=== PATIENT | female | born 1985 | race African-American/Black ===

== ENCOUNTER 2018-04-19 12:44 | Emergency (ER) | payer SELFPAY ==
[2018-04-19 13:31] VITALS: BP 104/70
--- NOTE | 2018-04-19 14:10 | ER Document Report ---
ED GI/ - General Chief Complaint: Abdominal Cramping Stated Complaint: VAGINAL BLEEDING Time Seen by Provider: 04/19/18 14:05 Mode of Arrival: Ambulatory Information source: Patient, [facility] Records Notes: 32-year-old female patient comes emergency room to determine if she is still . She was given pills to take, vomited some of them, so had a prescription for a vaginal suppository. She has not passed tissue and is concerned that it was not successful. She was 9 weeks by dates and ultrasound prior to starting the medication. Patient is blood type A-. She did not receiv e a RhoGam shot from her providers in [facility]. - Related Data Allergies/Adverse Reactions: No Known Allergies Allergy (Verified 04/19/18 12:46) Past Medical History - General Information source: Patient, [facility] Records - Social History Smoking Status: Never Smoker Cigarette use (# per day): No Chew tobacco use (# tins/day): No Smoking Education Provided: No Frequency of alcohol use: None Drug Abuse: None Lives with: Family Family History: Reviewed & Not Pertinent Patient has suicidal ideation: No Patient has homicidal ideation: No - Medical History Medical History: Negative Past Surgical History: Reports: Hx Section - x3 - Immunizations Hx Diphtheria, Pertussis, Tetanus Vaccination: Yes Review of Systems - Review of Systems Constitutional: No symptoms reported EENT: No symptoms reported Cardiovascular: No symptoms reported Respiratory: No symptoms reported Gastrointestinal: No symptoms reported Genitourinary: No symptoms reported Female Genitourinary: See HPI Musculoskeletal: No symptoms reported Skin: No symptoms reported Hematologic/Lymphatic: No symptoms reported Neurological/Psychological: No symptoms reported Physical Exam - Vital signs Vitals: Temp Pulse Resp BP Pulse Ox 98.2 F 79 18 104/70 96 04/19/18 13:29 04/19/18 13:29 04/19/18 13:29 04/19/18 13:29 04/19/18 13:29 - Notes Notes: PHYSICAL EXAMINATION: GENERAL: Well-appearing, well-nourished and in no acute distress. HEAD: Atraumatic, normocephalic. EYES: Pupils equal round and reactive to light, extraocular movements intact, sclera anicteric, conjunctiva are normal. ENT: nares patent, oropharynx clear without exudates. Moist mucous membranes. NECK: Normal range of motion, supple without lymphadenopathy LUNGS: Breath sounds clear to auscultation bilaterally and equal. No wheezes rales or rhonchi. HEART: Regular rate and rhythm without murmurs ABDOMEN: Soft, nontender, normoactive bowel sounds. No guarding, no rebound. No masses appreciated. EXTREMITIES: Normal range of motion, no pitting or edema. No cyanosis. NEUROLOGICAL: Cranial nerves grossly intact. Normal speech, normal gait. Normal sensory, motor, and reflex exams. PSYCH: Normal mood, normal affect. SKIN: Warm, Dry, normal turgor, no rashes or lesions noted. Course - Vital Signs Vital signs: Temp Pulse Resp BP Pulse Ox 98.2 F 79 18 104/70 96 04/19/18 13:29 04/19/18 13:29 04/19/18 13:29 04/19/18 13:29 04/19/18 13:29 - Diagnostic Test Radiology reviewed: Image reviewed - Gestational sac is in the cervix. No heart tones or movement seen. Discharge - Discharge Clinical Impression: Incomplete , Need for rhogam due to Rh negative mother Condition: Stable Disposition: HOME, SELF-CARE Additional Instructions: Your ultrasound showed the gestational sac was near the cervix and did not have a heartbeat or any movement. This means that the pills were successful, and you should be passing the tissue in the next 1-2 days. Take ibuprofen for cramping and pain if needed. Follow-up with [facility] if any problems. RETURN TO THE EMERGENCY ROOM IF ANY NEW OR WORSENING SYMPTOMS.
--- NOTE | 2018-04-19 15:04 | RADIOLOGY REPORT (SQ) ---
EXAM DESCRIPTION: U/S OB TRANSVAGINAL W/O DOP COMPLETED DATE/TIME: 04/19/2018 2:48 pm REASON FOR STUDY: Took ab pills suppository, not passed tissue COMPARISON: None. TECHNIQUE: Transvaginal static and realtime grayscale images acquired of the pelvis. Additional [place] cted spectral and color Doppler images recorded. All images stored on PACs. bHCG: Not applicable. CLINICAL DATES: LMP 02/10/2018. 9 weeks 5 days. LIMITATIONS: None. FINDINGS: Sonographic imaging shows an intrauterine gestational sac that extends into the cervical r egion. Of fetus is present with crown-rump length consistent with the gestational 10 weeks 0 days. No cardiac motion is present. No movement is present. IMPRESSION: Incomplete at 10 weeks. TECHNICAL DOCUMENTATION: JOB ID: [id number] [employer]- All Rights Reserved rev-08/12 Reading location - IP/workstation name: [email or web address]
== END 2018-04-19 20:26 | disposition left against medical advice (07) ==
LOC: ER 12:44
DX: O03.4 Incomplete spontaneous abortion without complication (principal); O36.0110 Maternal care for anti-D [Rh] antibodies, first trimester, not applicable or unspecified; Z3A.09 9 weeks gestation of pregnancy
CPT/HCPCS: 36415; 76817; 86850; 86900; 86901; 99284

== ENCOUNTER 2018-04-29 19:29 | Observation (INO) | payer SELFPAY ==
[2018-04-29 21:17] LABS: ABSOLUTE LYMPHOCYTES (AUTO) 0.9 10^3/uL (0.5-4.7); ABSOLUTE MONOCYTES (AUTO) 0.4 10^3/uL (0.1-1.4); ABSOLUTE NEUT (AUTO) 7.8 10^3/uL (1.7-8.2); BASOPHILS % (AUTO) 0.2 % (0-2); EOSINOPHILS % (AUTO) 0.5 % (0-6); HEMATOCRIT 34.5 % (36.0-47.0); HEMOGLOBIN 11.5 g/dL (12.0-15.5); LYMPHOCYTES % (AUTO) 9.7 % (13-45); MEAN CORPUSCULAR HEMOGLOBIN 29.7 pg (27.0-33.4); MEAN CORPUSCULAR HGB CONC 33.2 g/dL (32.0-36.0); MEAN CORPUSCULAR VOLUME 90 fl (80-97); MONOCYTES % (AUTO) 4.6 % (3-13); PLATELET COUNT 355 10^3/uL (150-450); RED BLOOD COUNT 3.85 10^6/uL (3.72-5.28); RED CELL DISTRIBUTION WIDTH 13.5 % (11.5-14.0); TOTAL CELLS COUNTED % (AUTO) 100 %; WHITE BLOOD COUNT 9.2 10^3/uL (4.0-10.5)
[2018-04-29 21:46] LABS: ANION GAP 8 (5-19); BLOOD UREA NITROGEN 11 mg/dL (7-20); CALCIUM 9.5 mg/dL (8.4-10.2); CARBON DIOXIDE 28 mmol/L (22-30); CHLORIDE 103 mmol/L (98-107); GLUCOSE 109 mg/dL (75-110); POTASSIUM 4.1 mmol/L (3.6-5.0)
[2018-04-29 22:40] LABS: APPEARANCE,URINE TURBID; BILIRUBIN,URINE NEGATIVE (NEGATIVE); GLUCOSE, URINE NEGATIVE (NEGATIVE); KETONES,URINE NEGATIVE (NEGATIVE); LEUKOCYTE ESTERASE,URINE MODERATE (NEGATIVE); NITRITE,URINE NEGATIVE (NEGATIVE); PROTEIN,URINE 100 mg/dL (NEGATIVE); URINE SPECIFIC GRAVITY 1.029
[2018-04-29 22:41] LABS: COLOR,URINE RED
--- NOTE | 2018-04-30 00:21 | RADIOLOGY REPORT (SQ) ---
EXAM DESCRIPTION: US TRANSVAGINAL COMPLETED DATE/TME: 04/29/2018 21:13 CLINICAL HISTORY: 32 years, Female, Evaluate retained products of conception COMPARISON: None. TECHNIQUE: LIMITATIONS: None. FINDINGS: The endometrial stripe is thickened, measuring 15 mm. There is a small amount of fluid within the endometrial cavity as well. There is some complex material within the cervical canal, possibly blood clot. There are no focal fibroids. The ovaries are unremarkable, and contain small follicular cysts. Blood flow was demonstrated in both ovaries with Doppler. IMPRESSION: Thickened endometrial stripe. Retained products of conception must be considered. Possible blood clot in the cervical canal. copyright 2010 [employer]- All Rights Reserved
--- NOTE | 2018-04-30 00:50 | ER Document Report ---
ED General - General Chief Complaint: Vaginal Bleeding Stated Complaint: VAGINAL BLEEDING,COUGH,WEAKNESS Time Seen by Provider: 04/29/18 21:12 Notes: Patient is a 32-year-old patient presenting with 1 week of heavy vaginal bleeding. Patient states that she had a medically induced elective 2 weeks ago. Began having some cramping early thereafter but did not began bleeding until 1 week ago. States she has been bleeding 5-6 pads daily since that time, more heavily in the last 24-48 hours. Notes a cramping, aching lower abdominal pain. Describes this as being moderately intense. Nothing improves or worsens the pain. Has not yet followed up with her [employer]. She was seen in the emergency department 10 days ago, given RhoGam at that time. No fever or constitutional symptoms. TRAVEL OUTSIDE OF THE [place] IN LAST 30 DAYS: No - Related Data Allergies/Adverse Reactions: No Known Allergies Allergy (Verified 04/19/18 12:46) Past Medical History - General Information source: Patient - Social History Smoking Status: Never Smoker Chew tobacco use (# tins/day): No Frequency of alcohol use: None Drug Abuse: None Lives with: Family Family History: Reviewed & Not Pertinent Patient has suicidal ideation: No Patient has homicidal ideation: No Renal/ Medical History: Denies: Hx Peritoneal Dialysis Past Surgical History: Reports: Hx Section - x3 - Immunizations Hx Diphtheria, Pertussis, Tetanus Vaccination: Yes Review of Systems - Review of Systems Notes: Constitutional: Negative for fever. HENT: Negative for sore throat. Eyes: Negative for visual changes. Cardiovascular: Negative for chest pain. Respiratory: Negative for shortness of breath. Gastrointestinal: Positive for lower abdominal pain Genitourinary: Positive vaginal bleeding Musculoskeletal: Negative for back pain. Skin: Negative for rash. Neurological: Negative for headaches, weakness or numbness. 10 point ROS negative except as marked above and in HPI. Physical Exam - Vital signs Vitals: Temp Pulse Resp BP Pulse Ox 99.3 F 108 H 20 106/62 94 04/29/18 19:35 04/29/18 19:35 04/29/18 19:35 04/29/18 19:35 04/29/18 19:35 Interpretation: Tachycardic Notes: PHYSICAL EXAMINATION: GENERAL: Well-appearing, well-nourished and in no acute distress. HEAD: Atraumatic, normocephalic. EYES: Pupils equal round and reactive to light, extraocular movements intact, sclera anicteric, conjunctiva are normal. ENT: nares patent, oropharynx clear without exudates. Moist mucous membranes. NECK: Normal range of motion, supple without lymphadenopathy LUNGS: Breath sounds clear to auscultation bilaterally and equal. No wheezes rales or rhonchi. HEART: Regular rate and rhythm without murmurs ABDOMEN: Soft, mild diffuse tenderness in the lower abdomen without focality, normoactive bowel sounds. No guarding, no rebound. No masses appreciated. : pelvic examination with copious amounts of dark blood that filled the speculum making visualization of the cervix unobtainable. EXTREMITIES: Normal range of motion, no pitting or edema. No cyanosis. NEUROLOGICAL: No focal neurological deficits. Moves all extremities spontaneously and on command. PSYCH: Normal mood, normal affect. SKIN: Warm, Dry, normal turgor, no rashes or lesions noted. Course - Re-evaluation Re-evalutation: 04/30/18 00:49 Patient presents with 1 week of heavy vaginal bleeding saturating through 6-10 pads daily. On pelvic examination the speculum fills up briskly with dark red blood and I am unable to visualize the cervix secondary to the briskness of the bleeding. Hemoglobin moderately decreased at 11.5. Patient was mildly tachycardic at presentation of 108 although resolved, evaluation at 98. Transvaginal ultrasound shows likely retained product conception, thickened endometrial stripe at 15 [place]. [place] [address]. I did discuss this case with Dr. Yuen the [employer] on-call who will evaluate the patient for D&C - Vital Signs Vital signs: Temp Pulse Resp BP Pulse Ox 98.8 F 120 H 18 107/58 L 98 04/30/18 02:00 04/30/18 02:00 04/30/18 02:00 04/30/18 02:00 04/30/18 02:00 - Laboratory Result Diagrams: 04/29/18 21:04 04/29/18 21:04 Laboratory results interpreted by me: 04/29/18 04/29/18 04/29/18 21:04 21:04 22:05 Hgb 11.5 L Hct 34.5 L Seg Neutrophils % 85.0 H Lymphocytes % 9.7 L Beta HCG, Quant 04608.00 H Urine Protein 100 H Urine Blood LARGE H Urine Urobilinogen 4.0 H Ur Leukocyte Esterase MODERATE H - Diagnostic Test Radiology reviewed: Reports reviewed Discharge - Discharge Clinical Impression: Retained products of conception, Vaginal bleeding Condition: Fair Disposition: ADMITTED OBSERVATION Admitting Provider: [facility] Admitted: OR
[2018-04-30] MEDS ORDERED: PROPOFOL INJ 200 MG/20 ML VIAL IV ONE (02:25)
[2018-04-30] MEDS ORDERED: MIDAZOLAM 2 MG/2 ML INJ ONE (02:25)
[2018-04-30] MEDS ORDERED: HYDROMORPHONE HCL INJ/PF 2 MG/ML AMPULE ONE (02:25)
[2018-04-30] MEDS ORDERED: FENTANYL CITRATE INJ/PF 100 MCG/2 ML AMPUL ONE (02:25)
[2018-04-30] MEDS ORDERED: ONDANSETRON HCL INJ/PF 4 MG/2 ML SDV ONE (02:25)
[2018-04-30] MEDS ORDERED: ACETAMINOPHEN WITH CODEINE #3 TABLET PO PRN (02:32)
[2018-04-30] MEDS ORDERED: DIPHENHYDRAMINE HCL 50 MG/ML VIAL IV PRN (02:38)
[2018-04-30] MEDS ORDERED: MORPHINE SULFATE 10 MG/ML INJ IV PRN ×2 (02:38→04:32)
[2018-04-30] MEDS ORDERED: FENTANYL CITRATE INJ/PF 100 MCG/2 ML AMPUL IV PRN ×3 (02:38)
[2018-04-30] MEDS ORDERED: DOXYCYCLINE HYCLATE INJ 100 MG VIAL ONE (02:38)
[2018-04-30] MEDS ORDERED: MEPERIDINE HCL/PF INJ 25 MG/1 ML DISP.SYRIN IV PRN (02:38)
[2018-04-30] MEDS ORDERED: PROMETHAZINE HCL INJ 25 MG/1 ML VIAL IV PRN (02:38)
[2018-04-30] MEDS ORDERED: ACETAMINOPHEN 1,000 MG/100 ML RTUPB IV ONE (02:52)
[2018-04-30] MEDS ORDERED: MISOPROSTOL 0.2 MG TABLET ONE (03:04)
[2018-04-30] MEDS ORDERED: METHYLERGONOVINE MALEATE INJ/PF 0.2 MG/1 ML AMPULE ONE (03:04)
[2018-04-30] MEDS ORDERED: OXYTOCIN 10 UNIT/ML VIAL ONE (03:10)
[2018-04-30] MEDS ORDERED: CARBOPROST TROMETHAMINE INJ 250 MCG/1 ML AMPULE ONE (03:19)
[2018-04-30] MEDS ORDERED: ALBUTEROL SULFATE 0.083% NEB 2.5 MG/3 ML AMPUL NEB ONE (03:49)
[2018-04-30] MEDS ORDERED: NORMAL SALINE 1000 ML 1,000 ML IV PRN (04:32)
--- NOTE | 2018-04-30 04:32 | Operative Report ---
Operative Report DATE OF SURGERY: 04/30/18 PREOPERATIVE DIAGNOSIS: Incomplete POSTOPERATIVE DIAGNOSIS: SRIDHAR OPERATION: Exam under anesthesia with suction dilation and curettage SURGEON: ALAN ZAMORANO ANESTHESIA: GA TISSUE REMOVED OR ALTERED: Products of conception COMPLICATIONS: None ESTIMATED BLOOD LOSS: 600cc INTRAOPERATIVE FINDINGS: 7 wk sized uterus. Dilated cervix. 8mm curette used. Removal of tissue with two passes and randlestone forceps. Brisk bleeding noted. Uterine massage, methergine and cytotec given. Gentle curettage complete and additional bleeding noted. Fundal massage, pitocin 20mU and hemabate given. Bladder drained with 150cc. After 5 minutes noted decrease in bleeding. Continued to watch additional five minutes and no additional bleeding noted. Cervix hemostatic. Fluids 1500cc. PROCEDURE: The risks benefits indications and alternatives were discussed with the patient and informed consent was obtained. Pt was taken to the OR with IV running. SCDs on and functioning. Pre op antibiotics with doxycycline was given. General anesthesia obtained. Pt prepped and draped in the normal sterile fashion in [facility]. Speculum placed in the vagina and a tenaculum was placed on the anterior cervix. Os appeared dilated. An 8mm suction curette was utilized and copious tissue removed with two passes. Brisk bleeding noted and pt was given methergine and cytotec. Gentle cry was obtained and further suction completed. Bleeding continued and so fundal massage along with pitocin and hemabate were given. Bladder was also drained 150cc. Pt was observed for over 10 minutes during this period as bleeding slowed. Hemostasis noted. Sharps and sponges were all accounted for. Warner catheter was placed. Pt was taken to the PACU in stable condition. Continue methergine series.
[2018-04-30] MEDS ORDERED: LOPERAMIDE HCL 2 MG CAPSULE PO ONE (04:45)
[2018-04-30] MEDS ORDERED: NORMAL SALINE 1000 ML 1,000 ML IV ONE (04:45)
--- NOTE | 2018-04-30 04:50 | PDOC PROGRESS REPORT ---
Subjective Progress Note for:: 04/30/18 Subjective:: Pt is a 32 y/o s/p Suction D&C on 04/30 for incomplete with concern for infection. Pt had a medical at 9 weeks gestation in March. Seen in ED on 19 April and still hadn't passed tissue. Given Rhogam at that time. Returned tonight on 04/29 with heavy vaginal bleeding using 6-10 pads a day for the past few days. Due to thickened EMS, uterine tenderness and unpleasant smell during exam she was consented for Suction D&C. Procedure complicated by heavier bleeding with EBL of 600 and use of methergine, cytotec and later hemabate and pitocin for uterotonics. Starting hct 34, WBC 9.2. Quant 13,000. Surgical hx noted for 3 c-sections and one D&C Reason For Visit: RETAINED PRODUCTS OF CONCEPTION,VEGINAL BLEEDING Physical Exam - Physical Exam Vital Signs: Temp Pulse Resp BP Pulse Ox 100.5 F H 120 H 28 H 110/66 95 04/30/18 03:33 04/30/18 04:18 04/30/18 04:18 04/30/18 04:18 04/30/18 04:18 Intake & Output 04/28/18 04/29/18 04/30/18 06:59 06:59 06:59 Intake Total 1500 Output Total 750 Balance 750 Weight 70.5 kg Result Laboratory Results: 04/29/18 21:04 04/29/18 21:04 04/29/18 04/29/18 04/29/18 21:04 21:04 22:05 WBC 9.2 RBC 3.85 Hgb 11.5 L Hct 34.5 L MCV 90 MCH 29.7 MCHC 33.2 RDW 13.5 Plt Count 355 Seg Neutrophils % 85.0 H Lymphocytes % 9.7 L Monocytes % 4.6 Eosinophils % 0.5 Basophils % 0.2 Absolute Neutrophils 7.8 Absolute Lymphocytes 0.9 Absolute Monocytes 0.4 Absolute Eosinophils 0.0 Absolute Basophils 0.0 Sodium 139.0 Potassium 4.1 Chloride 103 Carbon Dioxide 28 Anion Gap 8 BUN 11 Creatinine 0.66 Est GFR ( Amer) > 60 Est GFR (Non-Af Amer) > 60 Glucose 109 Calcium 9.5 Urine Color RED Urine Appearance TURBID Urine pH 6.0 Ur Specific [place] 1.029 Urine Protein 100 H Urine Glucose (UA) NEGATIVE Urine Ketones NEGATIVE Urine Blood LARGE H Urine Nitrite NEGATIVE Ur Leukocyte Esterase MODERATE H Urine WBC (Auto) >182 Urine RBC (Auto) >182 Blood Type Antibody Screen 04/30/18 02:00 WBC RBC Hgb Hct MCV MCH MCHC RDW Plt Count Seg Neutrophils % Lymphocytes % Monocytes % Eosinophils % Basophils % Absolute Neutrophils Absolute Lymphocytes Absolute Monocytes Absolute Eosinophils Absolute Basophils Sodium Potassium Chloride Carbon Dioxide Anion Gap BUN Creatinine Est GFR ( Amer) Est GFR (Non-Af Amer) Glucose Calcium Urine Color Urine Appearance Urine pH Ur Specific [place] Urine Protein Urine Glucose (UA) Urine Ketones Urine Blood Urine Nitrite Ur Leukocyte Esterase Urine WBC (Auto) Urine RBC (Auto) Blood Type A NEGATIVE Antibody Screen NEGATIVE Impressions: Transvaginal US 04/29/18 21:13 IMPRESSION: Thickened endometrial stripe. Retained products of conception must be considered. Possible blood clot in the cervical canal. copyright 2010 [employer]- All Rights Reserved Assessment & Plan - Time Time Spent with patient: 35 or more minutes Medications reviewed and adjusted accordingly: Yes Anticipated discharge: Home Within: within 24 hours, within 36 hours - anticipate d/c home within 24 - 36 hours pending assessment of vaginal bleeding and ensuring pt is afebrile - Plan Summary Plan Summary: A/P: S/p suction D&C with uterotonics due to increased bleeding. -NPO -CBC, CMP, HCG quant at 0600 -she is type and screened -methergine 0.2mg every 6 hours starting at 0600 -Warner in place -Doxycycline given pre and post op. If she develops fevers, elevated WBC or worsening uterine tenderness would recommend clindamycin 900mg, gentamycin and consider addition of ampicillin -Continue to monitor closely with pad counts. MD Wilfrid
[2018-04-30 05:35] LABS: HEMATOCRIT 29.4 % (36.0-47.0); MEAN CORPUSCULAR HEMOGLOBIN 30.8 pg (27.0-33.4); MEAN CORPUSCULAR HGB CONC 34.1 g/dL (32.0-36.0); MEAN CORPUSCULAR VOLUME 90 fl (80-97); PLATELET COUNT 215 10^3/uL (150-450); RED BLOOD COUNT 3.26 10^6/uL (3.72-5.28); RED CELL DISTRIBUTION WIDTH 13.5 % (11.5-14.0); WHITE BLOOD COUNT 5.1 10^3/uL (4.0-10.5)
[2018-04-30 05:58] LABS: ALANINE AMINOTRANSFERASE 20 U/L (9-52); ALBUMIN 2.8 g/dL (3.5-5.0); ALKALINE PHOSPHATASE 47 U/L (38-126); ASPARTATE AMINO TRANSFERASE 25 U/L (14-36); BILIRUBIN,DIRECT 0.2 mg/dL (0.0-0.4); BILIRUBIN,TOTAL 0.4 mg/dL (0.2-1.3); BLOOD UREA NITROGEN 6 mg/dL (7-20); CALCIUM 7.8 mg/dL (8.4-10.2); CHLORIDE 114 mmol/L (98-107); GLUCOSE 104 mg/dL (75-110); POTASSIUM 3.5 mmol/L (3.6-5.0); SODIUM 140.1 mmol/L (137-145); TOTAL PROTEIN 5.2 g/dL (6.3-8.2)
[2018-04-30 06:27] LABS: ANION GAP 7 (5-19); CARBON DIOXIDE 19 mmol/L (22-30)
[2018-04-30] MEDS ORDERED: LOPERAMIDE HCL 2 MG CAPSULE ONE (06:33)
[2018-04-30] MEDS ORDERED: METHYLERGONOVINE MALEATE 0.2 MG TABLET ONE (06:33)
[2018-04-30] MEDS: ACETAMINOPHEN WITH CODEINE #3 TABLET PO SCH ×5 (06:43→22:47)
[2018-04-30] MEDS: METHYLERGONOVINE MALEATE 0.2 MG TABLET PO SCH ×4 (06:44→23:26)
[2018-04-30] MEDS ORDERED: SUCCINYLCHOLINE CHLORIDE INJ 200 MG/10 ML VIAL ONE (09:18)
[2018-04-30] MEDS ORDERED: DOXYCYCLINE HYCLATE INJ 100 MG VIAL IV SCH (10:00)
[2018-04-30] MEDS: CEFOXITIN 1 GM/D5W RTU 1 GM/50 ML RTUPB IV SCH ×2 (10:26→22:47)
[2018-04-30] MEDS: DOXYCYCLINE HYCLATE 100 MG in DEXTROSE 5%-WATER 250 ML IV SCH (15:07)
[2018-05-01] MEDS: ACETAMINOPHEN WITH CODEINE #3 TABLET PO SCH ×6 (03:22→21:55)
[2018-05-01] MEDS: DOXYCYCLINE HYCLATE 100 MG in DEXTROSE 5%-WATER 250 ML IV SCH ×2 (03:23→16:44)
[2018-05-01] MEDS: METHYLERGONOVINE MALEATE 0.2 MG TABLET PO SCH ×4 (05:36→23:42)
--- NOTE | 2018-05-01 10:40 | PDOC PROGRESS REPORT ---
Subjective Progress Note for:: 05/01/18 Subjective:: patient feeling better. is tired. no nausea/vomiting. Reason For Visit: RETAINED PRODUCTS OF CONCEPTION,VEGINAL BLEEDING Physical Exam - Physical Exam Vital Signs: Temp Pulse Resp BP Pulse Ox 98.6 F 92 18 82/51 L 94 05/01/18 07:33 05/01/18 07:33 05/01/18 07:33 05/01/18 07:33 05/01/18 07:33 Intake & Output 04/30/18 05/01/18 05/02/18 06:59 06:59 06:59 Intake Total 2550 1955 Output Total 900 1025 Balance 1650 930 Weight 72.8 kg 75.4 kg General appearance: PRESENT: no acute distress, cooperative - abdomen soft and nontender. Result Laboratory Results: 04/30/18 05:28 04/30/18 05:28 Impressions: Transvaginal US 04/29/18 21:13 IMPRESSION: Thickened endometrial stripe. Retained products of conception must be considered. Possible blood clot in the cervical canal. copyright 2011 [employer]- All Rights Reserved Assessment & Plan - Diagnosis (1) Endometritis following abortive Is this a current diagnosis for this admission?: Yes (2) Retained products of conception Is this a current diagnosis for this admission?: Yes (3) Vaginal bleeding Is this a current diagnosis for this admission?: Yes - Time Time Spent with patient: Less than 15 minutes Medications reviewed and adjusted accordingly: Yes Anticipated discharge: Home Within: within 24 hours - Inpatient Certification Based on my medical assessment, after consideration of the patient's comorbidities, presenting symptoms, or acuity I expect that the services needed warrant INPATIENT care.: Yes I certify that my determination is in accordance with my understanding of [facility]'s requirements for reasonable and necessary INPATIENT services [42 CFR 412.3e].: Yes Medical Necessity: Need For IV Fluids, Need for IV Antibiotics - Plan Summary Plan Summary: patient doing well but did have fever of 101.6 last night at 2330. Will consider discharge home when afebrile x 24 hours. repeat CBC in AM.
[2018-05-01] MEDS: CEFOXITIN 1 GM/D5W RTU 1 GM/50 ML RTUPB IV SCH ×2 (10:54→21:48)
[2018-05-02] MEDS: ACETAMINOPHEN WITH CODEINE #3 TABLET PO SCH ×4 (01:42→13:30)
[2018-05-02] MEDS: DOXYCYCLINE HYCLATE 100 MG in DEXTROSE 5%-WATER 250 ML IV SCH (02:29)
[2018-05-02 05:10] LABS: ABSOLUTE EOSINOPHILS # (AUTO) 0.2 10^3/uL (0.0-0.6); ABSOLUTE LYMPHOCYTES (AUTO) 0.7 10^3/uL (0.5-4.7); ABSOLUTE MONOCYTES (AUTO) 0.4 10^3/uL (0.1-1.4); ABSOLUTE NEUT (AUTO) 2.8 10^3/uL (1.7-8.2); BASOPHILS % (AUTO) 0.3 % (0-2); EOSINOPHILS % (AUTO) 5.5 % (0-6); HEMATOCRIT 29.8 % (36.0-47.0); HEMOGLOBIN 9.9 g/dL (12.0-15.5); LYMPHOCYTES % (AUTO) 17.8 % (13-45); MEAN CORPUSCULAR HEMOGLOBIN 29.7 pg (27.0-33.4); MEAN CORPUSCULAR HGB CONC 33.3 g/dL (32.0-36.0); MEAN CORPUSCULAR VOLUME 89 fl (80-97); MONOCYTES % (AUTO) 9.3 % (3-13); PLATELET COUNT 219 10^3/uL (150-450); RED BLOOD COUNT 3.34 10^6/uL (3.72-5.28); RED CELL DISTRIBUTION WIDTH 13.7 % (11.5-14.0); SEGMENTED NEUTROPHILS % (AUTO) 67.1 % (42-78); TOTAL CELLS COUNTED % (AUTO) 100 %; WHITE BLOOD COUNT 4.2 10^3/uL (4.0-10.5)
[2018-05-02] MEDS: METHYLERGONOVINE MALEATE 0.2 MG TABLET PO SCH ×2 (06:19→13:28)
[2018-05-02] MEDS: CEFOXITIN 1 GM/D5W RTU 1 GM/50 ML RTUPB IV SCH (10:17)
--- NOTE | 2018-05-02 11:13 | PDOC PROGRESS REPORT ---
Subjective Progress Note for:: 05/02/18 Subjective:: incomplete AB, heavy bleeding, fever Reason For Visit: RETAINED PRODUCTS OF CONCEPTION,VEGINAL BLEEDING Physical Exam - Physical Exam Vital Signs: Temp Pulse Resp BP Pulse Ox 98.4 F 86 18 91/60 L 99 05/02/18 07:30 05/02/18 07:30 05/02/18 07:30 05/02/18 07:30 05/02/18 07:30 Intake & Output 05/01/18 05/02/18 05/03/18 06:59 06:59 06:59 Intake Total 1955 600 Output Total 1025 Balance 930 600 Weight 75.4 kg 74.5 kg General appearance: PRESENT: no acute distress, well-developed, well-nourished Head exam: PRESENT: atraumatic, normocephalic Respiratory exam: PRESENT: clear to auscultation helen, symmetrical, unlabored Cardiovascular exam: PRESENT: RRR. ABSENT: diastolic murmur, rubs, systolic murmur Pulses: PRESENT: normal dorsalis pedis pul, +2 pedal pulses bilateral Vascular exam: PRESENT: normal capillary refill GI/Abdominal exam: PRESENT: normal bowel sounds, soft. ABSENT: distended, guarding, mass, organolmegaly, rebound, tenderness Rectal exam: PRESENT: deferred Extremities exam: PRESENT: full ROM. ABSENT: calf tenderness, clubbing, pedal edema Neurological exam: PRESENT: alert, awake, oriented to person, oriented to place, oriented to time, oriented to situation, CN II-XII grossly intact. ABSENT: motor sensory deficit Result Laboratory Results: 05/02/18 04:20 04/30/18 05:28 05/02/18 04:20 WBC 4.2 RBC 3.34 L Hgb 9.9 L Hct 29.8 L MCV 89 MCH 29.7 MCHC 33.3 RDW 13.7 Plt Count 219 Seg Neutrophils % 67.1 Lymphocytes % 17.8 Monocytes % 9.3 Eosinophils % 5.5 Basophils % 0.3 Absolute Neutrophils 2.8 Absolute Lymphocytes 0.7 Absolute Monocytes 0.4 Absolute Eosinophils 0.2 Absolute Basophils 0.0 Impressions: Transvaginal US 04/29/18 21:13 IMPRESSION: Thickened endometrial stripe. Retained products of conception must be considered. Possible blood clot in the cervical canal. copyright 2011 [employer]- All Rights Reserved Status: Imported from PACS Assessment & Plan - Diagnosis (1) Endometritis following abortive Is this a current diagnosis for this admission?: Yes Plan: s/p 48 hours of IV abx and evacuation of POC. Now afebrile [id number] (2) Retained products of conception Is this a current diagnosis for this admission?: Yes Plan: s/p evacuation of POC (3) Vaginal bleeding Is this a current diagnosis for this admission?: Yes Plan: scant bleeding after evacuation of POC - Time Time Spent with patient: 15-24 minutes Medications reviewed and adjusted accordingly: Yes Anticipated discharge: Home
--- NOTE | 2018-05-02 11:16 | PDOC DISCHARGE SUMMARY ---
General - Admit/Disc Date/PCP Admission Date/Primary Care Provider: 04/30/18 01:39 Discharge Date: 05/02/18 - Discharge Diagnosis (1) Endometritis following abortive Is this a current diagnosis for this admission?: Yes Summary: s/p 48hours of ABX. S/p evacuation of POC (2) Retained products of conception Is this a current diagnosis for this admission?: Yes (3) Vaginal bleeding Is this a current diagnosis for this admission?: Yes - Additional Information Resuscitation Status: Full Code Discharge Diet: As Tolerated Discharge Activity: Activity As Tolerated, No Driving - while taking pain medi cations, Pelvic Rest Prescriptions: Acetaminophen with Codeine [Tylenol #3 Tablet] 1 each PO Q4 PRN #20 tablet PRN Reason: For Pain Doxycycline Hyclate 100 mg PO BID 14 Days #28 capsule Metronidazole [Flagyl 500 mg Tablet] 500 mg PO BID 14 Days #28 tablet Home Medications: Acetaminophen with Codeine [Tylenol #3 Tablet] 1 each PO Q4 PRN #20 tablet 05/02/18 Doxycycline Hyclate 100 mg PO BID 14 Days #28 capsule 05/02/18 Metronidazole [Flagyl 500 mg Tablet] 500 mg PO BID 14 Days #28 tablet 05/02/18 History of Present Illness Patient complains of: Heavy vaginal bleeding and fever 1 week post medically termination of - elective. History of Present Illness: BRENDA BELLAMY is a 32 year old female admitted via ER for fever and heavy vaginal bleeding due to recent elective medical termination of . She was admitted and labs were performed and Suction D&C performed. IV abx and now afebrile for greater than 24 hours. Hospital Course Hospital Course: 32 year old female admitted via ER for fever and heavy vaginal bleeding due to recent elective medical termination of . She was admitted and labs wer e performed and Suction D&C performed. IV abx and now afebrile for greater than 24 hours. Physical Exam - Physical Exam Vital Signs: Temp Pulse Resp BP Pulse Ox 98.4 F 86 18 91/60 L 99 05/02/18 07:30 05/02/18 07:30 05/02/18 07:30 05/02/18 07:30 05/02/18 07:30 Intake & Output 05/01/18 05/02/18 05/03/18 06:59 06:59 06:59 Intake Total 1955 600 Output Total 1025 Balance 930 600 Weight 75.4 kg 74.5 kg General appearance: PRESENT: no acute distress, well-developed, well-nourished Head exam: PRESENT: atraumatic, normocephalic Respiratory exam: PRESENT: clear to auscultation helen, symmetrical, unlabored Cardiovascular exam: PRESENT: bradycardia Pulses: PRESENT: normal dorsalis pedis pul, +2 pedal pulses bilateral Vascular exam: PRESENT: normal capillary refill Rectal exam: PRESENT: deferred Extremities exam: PRESENT: full ROM. ABSENT: calf tenderness, clubbing, pedal edema Neurological exam: PRESENT: alert, awake, oriented to person, oriented to place, oriented to time, oriented to situation, CN II-XII grossly intact. ABSENT: motor sensory deficit Psychiatric exam: PRESENT: appropriate affect, normal mood. ABSENT: homicidal ideation, suicidal ideation Result Laboratory Results: 05/02/18 04:20 04/30/18 05:28 05/02/18 04:20 WBC 4.2 RBC 3.34 L Hgb 9.9 L Hct 29.8 L MCV 89 MCH 29.7 MCHC 33.3 RDW 13.7 Plt Count 219 Seg Neutrophils % 67.1 Lymphocytes % 17.8 Monocytes % 9.3 Eosinophils % 5.5 Basophils % 0.3 Absolute Neutrophils 2.8 Absolute Lymphocytes 0.7 Absolute Monocytes 0.4 Absolute Eosinophils 0.2 Absolute Basophils 0.0 Impressions: Transvaginal US 04/29/18 21:13 IMPRESSION: Thickened endometrial stripe. Retained products of conception must be considered. Possible blood clot in the cervical canal. copyright 2010 [employer]- All Rights Reserved Status: Imported from [employer]
[2018-05-02 12:06] LABS: ABSOLUTE EOSINOPHILS # (AUTO) 0.2 10^3/uL (0.0-0.6); ABSOLUTE LYMPHOCYTES (AUTO) 0.8 10^3/uL (0.5-4.7); ABSOLUTE MONOCYTES (AUTO) 0.3 10^3/uL (0.1-1.4); BASOPHILS % (AUTO) 0.7 % (0-2); EOSINOPHILS % (AUTO) 6.5 % (0-6); HEMATOCRIT 26.2 % (36.0-47.0); HEMOGLOBIN 8.9 g/dL (12.0-15.5); LYMPHOCYTES % (AUTO) 22.5 % (13-45); MEAN CORPUSCULAR HEMOGLOBIN 30.1 pg (27.0-33.4); MEAN CORPUSCULAR HGB CONC 33.9 g/dL (32.0-36.0); MEAN CORPUSCULAR VOLUME 89 fl (80-97); MONOCYTES % (AUTO) 10.2 % (3-13); PLATELET COUNT 191 10^3/uL (150-450); RED BLOOD COUNT 2.94 10^6/uL (3.72-5.28); SEGMENTED NEUTROPHILS % (AUTO) 60.1 % (42-78); TOTAL CELLS COUNTED % (AUTO) 100 %; WHITE BLOOD COUNT 3.4 10^3/uL (4.0-10.5)
[2018-05-02 14:59] VITALS: BP 107/58
== END 2018-05-02 16:00 | disposition home or self-care (01) ==
LOC: ER 19:29 → EH 04-30 01:39 → 3N 04-30 05:44 → UNDODISOB 05-02 16:00
PROVIDERS: ADMIT Obstetrics & Gynecology; ATTEND Obstetrics & Gynecology
PROC: 10A07Z6 Abortion of Products of Conception, Vacuum, Via Natural or Artificial Opening (ICD-10-PCS; principal; 2018-04-30 03:00)
DX: O07.0 Genital tract and pelvic infection following failed attempted termination of pregnancy (principal); O07.1 Delayed or excessive hemorrhage following failed attempted termination of pregnancy; N71.9 Inflammatory disease of uterus, unspecified; O07.39 Failed attempted termination of pregnancy with other complications; R00.1 Bradycardia, unspecified; R00.0 Tachycardia, unspecified
CPT/HCPCS: 36415; 76830; 80048; 80053; 81001; 84702; 85025; 85027; 86850; 86900; 86901; 88305; 93976; 940; 99285; J0131; J0330; J0694; J1170; J2210; J2250; J2405; J2590; J2704; J3010; J3490; J7030; J7060

== ENCOUNTER → 2020-01-30 | Outpatient (CLI) | payer MEDICAID ==
--- NOTE | 2020-01-30 16:46 | RADIOLOGY REPORT (SQ) ---
EXAM DESCRIPTION: U/S [id number] TRNABD 1GES W/ODOP IMAGES COMPLETED DATE/TIME: 01/30/2020 2:36 pm REASON FOR STUDY: Z34.81 ENCOUNTER FOR SUPRVSN OF NORMAL , FIRST TRIMESTER Z34.81 ENCOUNTE R FOR SUPRVSN OF NORMAL , FIRST TRIM COMPARISON: None. TECHNIQUE: Transabdominal static and realtime grayscale images acquired of the pelvis. Additional se lected spectral and color Doppler images recorded. All images stored on PACs. bHCG: Not applicable. CLINICAL DATES: Unknown. LIMITATIONS: None. FINDINGS: FETUS: Single Living intrauterine . ULTRASOUND EGA: 7 week 1 day. ULTRASOUND JUAREZ: 09/16/2020. EFW: Not applicable less than 20 weeks. CRL: 1.04 cm. FHR: 171 beats per minute. SURVEY: No visualized anomalies. AMNIOTIC FLUID: Adequate amount. PLACENTA: Not yet developed due to early gestation. SUBCHORIONIC BLEED: No. SIZE OF BLEED: Not applicable. UTERUS: Possible 1.4 cm fibroid. No anomalies. CERVICAL LENGTH: 2.7 cm. Closed. RIGHT ADNEXA: Normal ovary with normal vascular flow. No adnexal free fluid. No adnexal masses. LEFT ADNEXA: Normal ovary with normal vascular flow. No adnexal free fluid. Corpus Luteum measuring 1.8 cm. FREE FLUID: None. OTHER: No other significant finding. IMPRESSION: LIVING INTRAUTERINE . EGA 7 WEEK 1 DAY. Trimester of : First trimester - 0 to 13 weeks. TECHNICAL DOCUMENTATION: JOB ID: [id number] [employer]- All Rights Reserved Reading location - IP/workstation name: [email or web address]
== END ==
LOC: RAD 14:07
PROVIDERS: ATTEND Midwife
DX: Z34.81 Encounter for supervision of other normal pregnancy, first trimester (principal); Z3A.01 Less than 8 weeks gestation of pregnancy
CPT/HCPCS: 76801

== ENCOUNTER 2020-02-12 20:11 | Emergency (ER) | payer MEDICAID ==
--- NOTE | 2020-02-12 21:03 | ER Document Report ---
ED Medical Screen (RME) - General Stated Complaint: 10 WEEKS HEAVY BLEEDING Time Seen by Provider: 02/12/20 20:57 Primary Care Provider: JASON HOFF CNM [Primary Care Provider] - Follow up as needed TRAVEL OUTSIDE OF THE [place] IN LAST 30 DAYS: No - HPI Notes: 02/12/20 21:01 34-year-old female LMP 12/11/2019 approximately 10 weeks presents to the emergency room with vaginal bleeding that started approximately an hour ago. Patient states she started to notice the bleeding came right to the emergency room. She follows with the health department for her [facility] care. Denies any fevers or chills. Denies any chest pain, shortness of breath, nausea vomiting or diarrhea. Denies any trauma. Unsure of her blood type. I have greeted and performed a rapid initial assessment of this patient. A comprehensive ED assessment and evaluation of the patient, analysis of test results and completion of the medical decision making process will be conducted by additional ED providers. PHYSICAL EXAMINATION: GENERAL: Well-appearing, well-nourished and in no acute distress. CV: s1, s2 regular LUNGS: No respiratory distress abd: suprapubic tenderness, no cva tenderness appreciated - Related Data Allergies/Adverse Reactions: No Known Allergies Allergy (Verified 04/19/18 12:46) Past Medical History Renal/ Medical History: Denies: Hx Peritoneal Dialysis Past Surgical History: Reports: Hx Section - x3, Other - suction D&C - Immunizations Hx Diphtheria, Pertussis, Tetanus Vaccination: Yes Physical Exam - Vital signs Vitals: Temp Pulse Resp BP 98.7 F 74 18 114/69 02/12/20 20:30 02/12/20 20:30 02/12/20 20:30 02/12/20 20:30 Course - Vital Signs Vital signs: Temp Pulse Resp BP Pulse Ox 98.7 F 74 18 114/69 02/12/20 20:30 02/12/20 20:30 02/12/20 20:30 02/12/20 20:30 Doctor's Discharge - Discharge Referrals: JASON HOFF CNM [Primary Care Provider] - Follow up as needed
[2020-02-12 22:14] LABS: ABSOLUTE EOSINOPHILS # (AUTO) 0.3 10^3/uL (0.0-0.6); ABSOLUTE LYMPHOCYTES (AUTO) 2.2 10^3/uL (0.5-4.7); ABSOLUTE MONOCYTES (AUTO) 0.6 10^3/uL (0.1-1.4); ABSOLUTE NEUT (AUTO) 4.7 10^3/uL (1.7-8.2); BASOPHILS % (AUTO) 0.6 % (0-2); EOSINOPHILS % (AUTO) 3.5 % (0-6); HEMATOCRIT 36.2 % (36.0-47.0); HEMOGLOBIN 11.8 g/dL (12.0-15.5); LYMPHOCYTES % (AUTO) 28.4 % (13-45); MEAN CORPUSCULAR HEMOGLOBIN 29.7 pg (27.0-33.4); MEAN CORPUSCULAR HGB CONC 32.7 g/dL (32.0-36.0); MEAN CORPUSCULAR VOLUME 91 fl (80-97); MONOCYTES % (AUTO) 7.4 % (3-13); PLATELET COUNT 320 10^3/uL (150-450); RED BLOOD COUNT 3.98 10^6/uL (3.72-5.28); RED CELL DISTRIBUTION WIDTH 13.7 % (11.5-14.0); SEGMENTED NEUTROPHILS % (AUTO) 60.1 % (42-78); TOTAL CELLS COUNTED % (AUTO) 100 %; WHITE BLOOD COUNT 7.8 10^3/uL (4.0-10.5)
[2020-02-12 22:27] LABS: APPEARANCE,URINE SLIGHTLY-CLOUDY; BILIRUBIN,URINE NEGATIVE (NEGATIVE); COLOR,URINE YELLOW; GLUCOSE, URINE NEGATIVE (NEGATIVE); KETONES,URINE NEGATIVE (NEGATIVE); LEUKOCYTE ESTERASE,URINE NEGATIVE (NEGATIVE); NITRITE,URINE NEGATIVE (NEGATIVE); PROTEIN,URINE 30 mg/dL (NEGATIVE); URINE SPECIFIC GRAVITY 1.025
[2020-02-12 22:33] LABS: ALBUMIN 3.8 g/dL (3.5-5.0); ALKALINE PHOSPHATASE 43 U/L (38-126); ANION GAP 9 (5-19); ASPARTATE AMINO TRANSFERASE 16 U/L (14-36); BILIRUBIN,DIRECT 0.1 mg/dL (0.0-0.4); BILIRUBIN,TOTAL 0.2 mg/dL (0.2-1.3); BLOOD UREA NITROGEN 11 mg/dL (7-20); CALCIUM 9.4 mg/dL (8.4-10.2); CARBON DIOXIDE 23 mmol/L (22-30); CHLORIDE 103 mmol/L (98-107); GLUCOSE 92 mg/dL (75-110); POTASSIUM 4.2 mmol/L (3.6-5.0); TOTAL PROTEIN 6.6 g/dL (6.3-8.2)
--- NOTE | 2020-02-12 23:05 | RADIOLOGY REPORT (SQ) ---
EXAM DESCRIPTION: U/S [id number] TRNABD 1GES W/ODOP RadLex: US LESS THAN 14 WEEKS CLINICAL HISTORY: 34 years Female; 10 weeks preg, vag bleeding; TECHNIQUE: Transabdominal pelvic ultrasound was performed. COMPARISON: None. FINDINGS: Uterus: 11.2 x 5 x 6 cm. Single gestational sac Single pole, CRL 2.77 cm, 9 weeks 4 days heart rate 171 BPM Crescentic hypoechoic fluid collection 2 x 0.6 x 1.8 cm, consistent with small subchorionic hemorrhage superior to the gestational sac Slightly hypoechoic myometrial fibroid posteriorly and to the left of the gestational sac, 1.5 x 1 x 1 cm Right ovary: Not visualized. Left ovary: 3.2 x 2.7 x 2.2 cm with 1.8 cm cyst.. Normal vascular flow on Doppler. No free fluid. No adnexal masses. IMPRESSION: 1. Single viable IUP, EGA 9 weeks 4 days, EDC 09/12/2020 2. Small subchorionic hemorrhage 3. Small myometrial uterine fibroid
--- NOTE | 2020-02-13 01:07 | ER Document Report ---
ED GI/ - General Chief Complaint: OB Problem (<20wks) Stated Complaint: 10 WEEKS HEAVY BLEEDING Time Seen by Provider: 02/12/20 20:57 Primary Care Provider: [facility] [Provider Group] - Follow up in 3-5 days Notes: Patient is a 34 year old female, at about 10 weeks gestation, that comes to the Emergency Department for chief complaint of vaginal bleeding. Bleeding started tonight, is more than spotting but not extremely heavy reportedly. She denies abdominal pain, dizziness, vaginal discharge, dysuria, fever, or any current complaints. She has followed with the health department and had 1 ultrasound previously that did show an intrauterine . She has received RhoGam in the past. TRAVEL OUTSIDE OF THE [place] IN LAST 30 DAYS: No - Related Data Allergies/Adverse Reactions: No Known Allergies Allergy (Verified 04/19/18 12:46) Home Medications: vitamin Past Medical History - General Information source: Patient - Social History Smoking Status: Never Smoker Frequency of alcohol use: None Drug Abuse: None Lives with: Family Family History: Reviewed & Not Pertinent Renal/ Medical History: Denies: Hx Peritoneal Dialysis Past Surgical History: Reports: Hx Section - x3, Other - suction D&C - Immunizations Hx Diphtheria, Pertussis, Tetanus Vaccination: Yes Review of Systems - Review of Systems Constitutional: No symptoms reported EENT: No symptoms reported Cardiovascular: No symptoms reported Respiratory: No symptoms reported Gastrointestinal: No symptoms reported Genitourinary: No symptoms reported Female Genitourinary: See HPI Musculoskeletal: No symptoms reported Skin: No symptoms reported Hematologic/Lymphatic: No symptoms reported Neurological/Psychological: No symptoms reported Physical Exam - Vital signs Vitals: Temp Pulse Resp BP 98.7 F 74 18 114/69 02/12/20 20:30 02/12/20 20:30 02/12/20 20:30 02/12/20 20:30 - Notes Notes: GENERAL: Alert, interacts well. No acute distress. HEAD: Normocephalic, atraumatic. EYES: Pupils equal, round, and reactive to light. Extraocular movements intact. ENT: Oral mucosa moist, tongue midline. Oropharynx unremarkable. Airway patent. NECK: Full range of motion. Supple. Trachea midline. No lymphadenopathy. LUNGS: Clear to auscultation bilaterally, no wheezes, rales, or rhonchi. No respiratory distress. Non-tender chest wall. HEART: Regular rate and rhythm. No murmur ABDOMEN: Soft, non-tender. Non-distended. EXTREMITIES: Moves all 4 extremities spontaneously. No edema, normal radial and dorsalis pedis pulses bilaterally. No cyanosis. BACK: no cervical, thoracic, lumbar midline tenderness. No saddle anesthesia, normal distal neurovascular exam. Moves all extremities in full range of motion. NEUROLOGICAL: Alert and oriented x3. Normal speech. Cranial nerves II through XII grossly intact. Strength 5/5 in all extremities. PSYCH: Normal affect, normal mood. SKIN: Warm, dry, normal turgor. No rashes or lesions noted. Course - Re-evaluation Re-evalutation: Patient is smiling, alert, well-appearing. No current complaints on my evaluation. Vital signs unremarkable. CBC reviewed and unremarkable. Urinalysis has blood but I suspect this is a contamination based on patient's reported bleeding tonight. No flank pain or current abdominal pain. hCG elevated appropriately. RhoGam is indicated with a negative blood type and this will be provided tonight. Ultrasound shows a small fibroid, small subchronic bleed, living intrauterine , no other concerning findings. Discussed with patient at length. Patient will be given RhoGam, perform pelvic rest, be provided with work release on request, and follow-up with [employer] [facility] closely. She does have this established. Discussed return precautions in detail. Patient states appreciation and agreement. Stable and well-appearing at time of discharge. - Vital Signs Vital signs: Temp Pulse Resp BP Pulse Ox 98.4 F 68 16 124/72 98 02/13/20 01:35 02/13/20 01:35 02/13/20 01:35 02/13/20 01:35 02/13/20 01:35 - Laboratory Result Diagrams: 02/12/20 21:49 02/12/20 21:49 Laboratory results interpreted by me: 02/12/20 02/12/20 02/12/20 21:05 21:49 21:49 Hgb 11.8 L Sodium 134.5 L Creatinine 0.49 L Beta HCG, Quant Urine Protein 30 H Urine Blood LARGE H Urine Urobilinogen 4.0 H 02/12/20 21:49 Hgb Sodium Creatinine Beta HCG, Quant 91264.00 H Urine Protein Urine Blood Urine Urobilinogen Discharge - Discharge Clinical Impression: Vaginal bleeding affecting early Condition: Stable Disposition: HOME, SELF-CARE Additional Instructions: Your ultrasound shows a living in the uterus at 9 weeks and 4 days. There is also a small fibroid and a subchorionic bleed as we discussed. Recommendations pelvic rest. Avoid any significant physical activity (lifting, exercising, sexual intercourse, etc.) for approximately 5 to 7 days or until cleared by [employer]. Take Tylenol for pain if needed. Return if you worsen including severe worsening pain, heavy bleeding (approximately 1 pad an hour or more), passing out, dizziness, fever, or any other concerning symptoms. Forms: Return to Work Referrals: [facility] [Provider Group] - Follow up in 3-5 days
[2020-02-13 01:38] VITALS: BP 124/72
== END 2020-02-13 01:43 | disposition home or self-care (01) ==
LOC: ER 20:11
DX: O20.8 Other hemorrhage in early pregnancy (principal); O34.11 Maternal care for benign tumor of corpus uteri, first trimester; D25.9 Leiomyoma of uterus, unspecified; Z67.91 Unspecified blood type, Rh negative; Z79.899 Other long term (current) drug therapy; Z3A.08 8 weeks gestation of pregnancy
CPT/HCPCS: 99284; 86900; 86901; 36415; 86850; 84702; 85025; 80053; 81001; 76801; J2790